=== PATIENT | male | born 1950 | race Caucasian/White ===

== ENCOUNTER 2019-10-02 10:33 | Inpatient (IN) | payer OTHER ==
[~2019-10-02] VITALS: Ht 185.4 cm; Wt 105.7 kg
--- NOTE | ~2019-10-02 | O ---
[facility] [place] [address] OPERATIVE REPORT Name: SIDDHARTHA COOL Room #: 443-P ADM IN M.R.#: [id number] Admission: 10/02/19 Attend Phys: John Hanna MD Discharge: Date of : 52 Report #: [id number] THIS REPORT FOR: cc: Jasmin Chapa MD,Jasmin Hanna,John Armendariz MD ~ CC: John Chapa DATE OF SERVICE: 10/02/2019 PREOPERATIVE DIAGNOSIS: Left foot wound infection and abscess. POSTOPERATIVE DIAGNOSIS: Left foot wound infection and abscess. PROCEDURE: Left foot irrigation and debridement down to the fifth metatarsal to the bone. SURGEON: Dr. oJhn Hanna. SALES ORDER CLERK: Paola Lim. ANESTHESIA: General. ESTIMATED BLOOD LOSS: Minimal. DRAINS: One Hemovac drain was placed. COMPLICATIONS: There were no complications. DESCRIPTION OF PROCEDURE: The patient brought to the operating room where he was placed under general anesthesia. Once under adequate general anesthesia, his left lower extremity was prepped and draped in sterile manner. The extremity was elevated and a tourniquet placed to 300 mmHg. The patient's prior wound was then ellipsed with a longer incision on the lateral foot over the fifth metatarsal base. There is abundant purulent material, which did emanate from the wound at this point. Cultures were taken at this time. The wound was irrigated copiously with a pulsatile lavage and debridement of the soft tissue was achieved as well with a rongeur. Once 3 liters of solution had been run through the wound, a medium Hemovac was then placed through the foot and the wound was irrigated once again copiously and closed with 2-0 nylon suture in simple stitch manner over the drain. The wound was dressed with Xeroform, 4 x 4s, and sterile soft compressive dressing. Tourniquet was let down at approximately 30 minutes. Toes were pink and warm with good capillary refill. [facility] [address] [place] [address] OPERATIVE REPORT Name: SIDDHARTHA COOL Room #: 443-P [facility] IN M.R.#: [id number] Admission: 10/02/19 Attend Phys: John Hanna MD Discharge: Date of : 52 Report #: [id number] There were no complications from the procedure. The patient tolerated the procedure well and went to the recovery room without incident. By: [id number] John Hanna MD /nt
--- NOTE | ~2019-10-02 | HC ---
[facility] [place] [address] CONSULTATION Name: SIDDHARTHA COOL Room #: 443-P ADM IN M.R.#: [id number] Admission: 10/02/19 Attend Phys: John Hanna MD Discharge: Date of : 52 Report #: [id number] THIS REPORT FOR: cc: Jasmin Chapa MD,Jasmin Scales,Jay Winkler MD ~ CC: John Chapa DATE OF SERVICE: 10/02/2019 INFECTIOUS DISEASE CONSULTATION REASON FOR CONSULTATION: I was asked to evaluate concerning left lateral foot surgical site infection. HISTORY OF PRESENT ILLNESS: The patient is a 69-year-old with degenerative arthritis, who has had a bursectomy resected from the left fifth metatarsal about a month ago. Subsequently, he had persistent drainage. After the stitches were removed, the drainage did not seize. About 2 weeks ago, developed fever, chills, erythema, which extended up his left leg. Placed on Levaquin initially. Cultures revealed Staph aureus. Do not have full sensitivities. Treated with daptomycin by Dr. Kody Mina in [place], [place]. He presents now for further surgical debridement by Dr. John Hanna. No intraoperative complications were noted. Small amount of purulent material was debrided. I discussed the case with Dr. Hanna postoperatively. No bony involvement was identified. No septic joint identified. Postoperatively, he has been stable. He has no history of tobacco use or diabetes. No peripheral neuropathy symptoms. No history of gout. He has bilateral total knee arthroplasties are about a year old. ALLERGIES: None known. MEDICATIONS: As noted on his MAR including terazosin, pramipexole, meloxicam, lisinopril, carbidopa/levodopa, albuterol, Advair Diskus. PAST MEDICAL HISTORY: Parkinson's disease, degenerative arthritis, bilateral total knee arthroplasties. FAMILY HISTORY: No tuberculosis. SOCIAL HISTORY: , nonsmoker, minimal alcohol intake. 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 REVIEW OF SYSTEMS: A 14-point review was negative other than what has been described above. [facility] [address] [place] [address] CONSULTATION Name: SIDDHARTHA COOL Room #: 443-P [facility] IN [facility].#: [id number] Admission: 10/02/19 Attend Phys: John Hanna MD Discharge: Date of : 52 Report #: [id number] PHYSICAL EXAMINATION: VITAL SIGNS: Afebrile and hemodynamically stable. GENERAL: He is alert and cooperative. Just got out of anesthesia. SKIN: Without rash. He did have evidence of cellulitis involving the left pretibial skin about half way up the perla. EXTREMITEIS: 1+ edema in the left lower extremity. Left foot was in surgical wrap and was dry. Good capillary refill in his toes. Sensation to touch was intact with his toes. Full movement of all of his toes on the left. EYES: Without scleral icterus. MOUTH: Without mucositis. NECK: Supple. No palpable adenopathy. LUNGS: Clear to auscultation. HEART: Regular, without murmur. ABDOMEN: Soft and nontender with no hepatosplenomegaly or mass. GENITORECTAL: Not performed. IMPRESSION: A 69-year-old with left fifth metatarsal bursa resection surgical site infection with suspected Staph aureus involvement. He has residual abscess that has been drained. Associated cellulitis. No evidence of osteomyelitis reported. RECOMMENDATIONS: We will continue antibiotic coverage with vancomycin and cefepime, pending initial culture results. Anticipate discharge back to [place], [place], under the care of Dr. Kody Mina. He was on daptomycin. If no other growth identified, we will be able to resume that as an outpatient. By: [id number] Jay Scales MD /nt
[~2019-10-02 10:33] MED LIST: ADVAIR 250-501 EACH INH
--- NOTE | 2019-10-02 16:36 | NUR ---
Chart reviewed and case discussed with the care team. Pt is postop and in recovery. Telephone Surveyor visited with the pt's who indicates that the pt has crutches and a rental knee scooter that he has been using prior to surgery. She is able to assist as needed with any dressing changes to his foot and f/u appts. She does not anticipate him having any dc planning needs other than outpt f/u. Cm role introduced. will follow along should dc need arise.
[2019-10-02] MEDS ORDERED: TERAZOSIN HCL10 MG PO (17:37)
[2019-10-02] MEDS ORDERED: PRAVASTATIN SOD20 MG PO (17:38)
[2019-10-02] MEDS ORDERED: MIRAPEX 0.250.25 M1 PO (17:39)
[2019-10-02] MEDS ORDERED: MELOXICAM15 MG PO (17:40)
[2019-10-02] MEDS ORDERED: LISINOPRIL2.5 MG PO (17:41)
[2019-10-02] MEDS ORDERED: FLONASE 0.05%50 MCG NASAL (17:42)
[2019-10-02] MEDS ORDERED: SINEMET CR 25-1 EACH PO (17:44)
[2019-10-02] MEDS ORDERED: CARBIDOPA PO (17:45)
[2019-10-02] MEDS ORDERED: LEVO PO (17:45)
[2019-10-02] MEDS ORDERED: PROAIR HFA8.5 GM INH (17:46)
[2019-10-02] MEDS ORDERED: DAPTOMYCIN500 MG IV (17:47)
--- NOTE | 2019-10-02 18:02 | NUR ---
PT CARE ASSUMED AT [address] KELLEY. A&Ox4. PT WENT TO SURGERY AT 1400 TO HAVE A DEBRIEMENT ON THE LEFT FOOT. POST OP VITALS ARE STABLE. ADMISSION COMPLEETED. PT IS A FALL RISK WITH PROTOCOL IN PLACE. HOSPITALIST AND DR. DO WERE CONSULTED AND HAVE SEEN PT. CULTURES WERE TAKEN DURING SURGERY. MEDS ARE RECONCILED. PICTURES WERE NOT TAKEN SINCE THE PATIENT WENT DIRECTLY TO SURGERY WHEN COMING TO THE FLOOR. ADMISSION COMPLEETED AFTER SURGERY. CALL LIGHT IN REACH.
[2019-10-02 19:15] VITALS: BP 144/86
[2019-10-03 04:05] VITALS: BP 138/81
[2019-10-03 06:08] LABS: ABSOLUTE NEUTROPHILS 8.6 thou/uL (1.4-8.2); BASOPHILS 0.1 % (0.0-2.0); HEMATOCRIT 36.5 % (42.0-52.0); HEMOGLOBIN 12.2 gm/dL (14.0-18.0); LYMPHOCYTES 4.8 % (24.0-44.0); MCH 28.7 pg (26.0-34.0); MCHC 33.4 g/dL (28.0-37.0); MCV 85.9 fL (80.0-100.0); MONOCYTES 1.9 % (1.0-8.0); PLATELET COUNT 269 thou/uL (150-400); POLYS 93.2 % (36.0-66.0); RBC 4.26 mil/uL (4.50-6.00); RDW 13.6 % (10.5-14.5); WBC 9.2 thou/uL (4.0-11.0)
[2019-10-03 06:20] LABS: ALBUMIN 2.8 g/dL (3.4-5.0); CALCIUM 8.3 mg/dL (8.5-10.1); CREATININE 0.7 mg/dL (0.7-1.3); TOTAL BILIRUBIN 0.4 mg/dL (<0.1-1.0); TOTAL PROTEIN 6.3 g/dL (6.4-8.2)
[2019-10-03 08:14] VITALS: BP 126/69
--- NOTE | 2019-10-03 09:02 | NUR ---
PT AOX4. PT REPORTS PAIN IN LEFT FOOT. PT RECEIVING PRN Q4H DILAUDID AND PRN IV Q2H MORPHINE. HEMOVAC INTACT AND DRAINING SMALL AMOUNT OF BLOODY DRAINAGE. PT AMBULATES WITH STBA WITH LEFT KNEE SCOOTER. PT TOLERATING REGULAR DIET AND PO INTAKE OF FLUIDS. ENCOURAGED PT TO NOTIFY STAFF FOR ALL NEEDS. CALL LIGHT WITHIN REACH, BED IN LOWEST POSITION, BED ALARM ON. WILL CONTINUE TO MONITOR.
--- NOTE | 2019-10-03 15:48 | NUR ---
PT A&OX4. IV INTACT IN L WRIST. WILLIAM WRAP NOTED TO R FOOT. HEMOVAC INTACT. PT USING A SCOOTER, NWB. IV INTACT IN L WRIST INFUSING FLUIDS W/O COMPS. SCD IN PLACE. CALL LIGHT W/I REACH.
[2019-10-03 17:10] VITALS: BP 127/83
--- NOTE | 2019-10-04 04:14 | NUR ---
ASSESSED AT START OF SHIFT PT A&O4 WITH C/O PAIN IN LLE. PAIN MED GIVENX1 THIS SHIFT WITH COMPLETE RELIEF. FOOT WILLIAM WRAPPED. UP WITH SBA TO THE BATHROOM. PT HAS A SCOTTER DUE TO NWB ON LFT FOOT. HEMOVAC INTACT AND SCD'S IN PLACE. FALL PREC IN PLACE AND WILL CONT WITH POC TILL EOS.
[2019-10-04 06:11] LABS: HEMATOCRIT 35.6 % (42.0-52.0); HEMOGLOBIN 11.7 gm/dL (14.0-18.0); MCH 28.3 pg (26.0-34.0); MCHC 32.9 g/dL (28.0-37.0); RBC 4.15 mil/uL (4.50-6.00); RDW 13.9 % (10.5-14.5); WBC 6.7 thou/uL (4.0-11.0)
[2019-10-04 09:30] VITALS: BP 134/98
[2019-10-04] MEDS ORDERED: DILAUDID 2 MG TA2 MG PO (10:16)
[2019-10-04] MEDS ORDERED: KEFLEX500 M1 PO (10:16)
[2019-10-04 10:34] VITALS: BP 134/98
[2019-10-05 03:08] LABS: GLYCOHEMOGLOBIN (HGB A1C) 5.8 % (4.8-5.6)
== END 2019-10-04 11:47 | disposition home or self-care (01) | DRG 857 ==
LOC: 4S 10:33
PROVIDERS: Hospitalist; ADMIT Orthopaedic Surgery Foot and Ankle Surgery
PROC: 0YBN0ZZ Excision of Left Foot, Open Approach (ICD-10-PCS; principal; 2019-10-02)
DX: T81.41XA Infection following a procedure, superficial incisional surgical site, initial encounter (principal); L02.612 Cutaneous abscess of left foot; B95.61 Methicillin susceptible Staphylococcus aureus infection as the cause of diseases classified elsewhere; J45.909 Unspecified asthma, uncomplicated; Z96.653 Presence of artificial knee joint, bilateral; Y83.8 Other surgical procedures as the cause of abnormal reaction of the patient, or of later complication, without mention of misadventure at the time of the procedure; G20 Parkinson's disease; M19.90 Unspecified osteoarthritis, unspecified site; Z79.899 Other long term (current) drug therapy; Z79.2 Long term (current) use of antibiotics; Y92.89 Other specified places as the place of occurrence of the external cause
CPT/HCPCS: 10102; 50010; 50101; 62110; 62900; 70005